=== PATIENT | female | born 1960 | race Caucasian/White ===

== ENCOUNTER 2025-02-03 07:24 | Outpatient (REF) | payer OTHER, SELFPAY ==
--- NOTE | ~2025-02-03 | XR_ITS ---
EXAMINATION: XR SHOULDER, RIGHT CLINICAL INFORMATION: M25.519 - Pain in right shoulder COMPARISON: None available. TECHNIQUE: AP external rotation, Grashey, axillary views of the right shoulder. FINDINGS: AC joint is intact. Clinical history joint is intact. There is mild narrowing of glenohumeral joint. There are moderate osteophytes involving the margin of the humeral head seen medially. XR/XR shoulder RT min 2V IMPRESSION: Moderate degenerative changes are noted involving the right glenohumeral joint. Electronically signed by: Jamel Guevara MD 02/03/2025 12:22 PM EDT
--- OUTSIDE RECORDS SUMMARY | 2025-02-03 07:26 | XMS_ITS | Encounter Summary ---
Author Organization [facility] Address [address] [place] [address] Care Team Providers Care China Decorator Name Role Phone Zachary Fournier Primary Care Provider [phone] Reason for Visit * Reason Comments Patient Questions Encounter Details Date Type Department Care Team ([facility] st Contact Info) Description 10/04/2019 Telephone [facility] Orthopedic Surgery [address] [address] Dez Dixon MD [address] [address] Patient Questions Social History Tobacco Use Types Packs/Day Years Used Date Smoking Tobacco: Former Cigarettes Q uit: 10/04/2014 Smokeless Tobacco: Never Comments No Sex and Gender Information Value Date Recorded Sex Assigned at Female 09/27/2021 8:30 AM EST Legal Sex Female 12:55 PM EST Gender Identity Female 09/27/2021 8:30 AM EST Sexual Orientation Straight 09/27/2021 8: 30 AM EST documented as of this encounter Miscellaneous Notes * Telephone Encounter - Hannah Thibodeaux - 10/15/2019 11:37 AM EST Read Winter postop instructions from pt's d/c paperwork regarding instructions for PT and OT. All set. * Telephone Encounter - John Leiva - 10/15/2019 11:20 AM EST [facility] from [facility] asks for clarification on posterior hip precautions and that the patient is also unaware on this information. documented in this encounter Plan of Treatment Not on file documented as of this encounter Procedures * Due to [place] [employer] law, this organization might not be sharing negative HIV tests. Procedure Name Priority Date/Time Associated Diagnosis Comments BLOOD TYPE AND ANTIBODY SCREEN Routine 10/04/2019 12:00 PM EST documented in this encounter Results * Due to [place] [employer] law, this organization might not be sharing negative HIV tests. * BLOOD TYPE AND ANTIBODY SCREEN (10/04/2019 12:00 PM EST) BLOOD GROUP ABO O [facility] RH-(D) Positive [facility] ANTIBODY SCREEN Negative Negative [facility] 10/04/2019 12:0 0 PM EST 10/04/2019 12:00 PM EST Dez Dixon MD LABORATORY Final Result Performing Organization Address City/State/[facility] Co de Phone Number [facility] [address] [place] [address] documented in this encounter Visit Diagnoses Not on filedocumented in this encounter Care Teams China Decorator Relationship Specialty Start Date End Date Zachary Fournier [address] [place] [id number] PCP - General Internal Medicine 09/02/19 documented as of this encounter
== END 2025-02-03 07:25 | disposition home or self-care (01) ==
LOC: HO.HOSX 07:24
PROVIDERS: Visit Provider Orthopaedic Surgery
DX: M25.511 Pain in right shoulder (principal); M19.011 Primary osteoarthritis, right shoulder
CPT/HCPCS: 73030

== ENCOUNTER 2025-02-03 11:17 | Outpatient (AMB) | payer OTHER, SELFPAY ==
--- NOTE | 2025-02-03 11:18 | MHC.OFFVIS ---
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 She has previously been seen and [facility] with [facility]. Hx of injections (last done 12/28/24) that only provided relief for about 1 month. She was referred to discuss possible TSA. Patient stated that the Right shoulder is in constant pain. she stated that she has trouble lifting her arm up to do daily activities due to the pain. She stated that she has had this pain for the past 10 years, she did swimming to help with the pain . she takes methrotraxate to help with the pain. Allergies No Known Allergies Allergy (Verified 02/03/25 11:40) HPI HPI [employer] SURVEILLANCE-Left shoulder OA: Details: Aye is a 64 year old Righthand dominant female who presents today for a new patient visit with complaints of Right Shoulder Pain. She has previously been seen and treated with [facility]. Hx of injections (last done 12/28/24) that only provided relief for about 1 month. She was referred to discuss possible TSA. Patient stated that the Right shoulder is in constant pain. she stated that she has trouble lifting her arm up to do daily activities due to the pain. She stated that she has had this pain for the past 10 years, she did swimming to help with the pain . She takes methrotraxate. [facility] Medical History (Updated 02/08/25 @ 15:28 by Pipe Santa MD) Right wrist effusion Bunion of right foot (~2004) Bunion of left foot Surgical History (Updated 02/03/25 @ 11:46 by CALLIE Palmer-A) History of right hip replacement Social History (Updated 02/03/25 @ 11:46 by CALLIE Palmer-A) Current occupational status: retired Physical Exam Vital Signs: BMI result Body Mass Index 37.1 Extrem Other: There is minimal restriction of terminal combined overhead abduction but otherwise she has excellent range of motion. Her examination is otherwise unremarkable. She has a negative empty can. Negative Napier and Neer. Negative lift-off. Negative crank test. Results Reviewed Results Reviewed: I personally reviewed relevant radiographs. Mild glenohumeral OA Assessment & Plan Assessment & Plan (1) Arthritis of right shoulder region: Code(s): M19.011 - Primary osteoarthritis, right shoulder Category: Medical Plan: This is a 64-year-old woman with mild arthritis of the right shoulder. She is occasionally symptomatic but I suspect her symptoms are subacromial. Physical therapy has not been helpful and we discussed other treatment options including injections. At this time, given her lack of consistently painful symptoms and her unimpressive physical exam I do not recommend intervention. She understands this. She agrees. She will see me if her pain worsens. Orders: Orders XR shoulder RT min 2V 02/03/25 M25.519 - Pain in unspecified shoulder Coding Level of Care Code New Pt Level 3 (69654) Diagnoses Arthritis of right shoulder region M19.011
[2025-02-03 11:37] VITALS: BMI 37.1
== END 2025-02-03 12:31 | disposition home or self-care (01) ==
PROVIDERS: PCP Family Medicine; Visit Provider Orthopaedic Surgery
DX: M19.011 Primary osteoarthritis, right shoulder (principal)
CPT/HCPCS: 99203

== ENCOUNTER → 2025-02-03 11:25 | Outpatient (BNV) | payer OTHER, SELFPAY | PROVIDERS: Visit Provider Radiology Diagnostic Radiology | DX: M19.011 Primary osteoarthritis, right shoulder (principal) | CPT/HCPCS: 73030 ==